=== PATIENT | female | born 1955 | race Caucasian/White ===

== ENCOUNTER → 2018-10-10 | Outpatient (CLI) | payer OTHER, BC ==
[~2018-10-10] VITALS: Ht 157.5 cm; Wt 77.1 kg
[~2018-10-10] MED LIST: AIRBORNE TABLE1 EACH PO; ALENDRONATE SOD70 MG PO; ASPIR 8181 MG PO; CBD OIL PO; CENTRUM SILVER1 EAC4 PO; CLARITIN10 M2 PO; DHEA50 MG PO; GLUCOPHAGE XR500 MG PO; INDAPAMIDE2.5 MG PO; MUCINEX600 MG PO; OCUVITE TABLET1 EAC1 PO; PRAVACHOL40 MG PO; VERAPAMIL HCL120 MG PO; VITAMIN B COMP1 EACH PO; VITAMIN D-32000 UNIT PO; ZOLOFT50 MG PO
--- NOTE | 2018-10-11 08:14 | P ---
[facility] [place] [address] PROCEDURE REPORT Name: KETTY YAÑEZ Room #: REG [facility].#: [id number] Admission: 10/10/18 ������������������ Attend Phys: Darrin Ford MD Discharge: ������������������ Date of : 51 Report #: [id number] THIS REPORT FOR: //name// CC: Darrin Higuera MD TYPE OF REPORT: Outpatient colonoscopy report. BRIEF HISTORY: The patient is a 63-year-old woman for average risk screening colonoscopy. PREOPERATIVE DIAGNOSIS: Average risk screening colonoscopy. POSTOPERATIVE DIAGNOSES: Normal average risk screening colonoscopy. MEDICATIONS: Deep sedation with propofol per Anesthesia. SPECIMEN: None. ESTIMATED BLOOD LOSS: None. PROCEDURE: Colonoscopy to cecum and terminal ileum. FINDINGS: Prior to propofol sedation, procedure of colonoscopy discussed with the patient as well as potential risks and its complications. She indicates she understands and desires to proceed. DESCRIPTION OF PROCEDURE: With the patient in left lateral decubitus position, digital examination was completed, which revealed no abnormalities. Subsequently, the Olympus video colonoscope was introduced in the rectum and advanced under direct vision to the cecum. It was done with minimal difficulty. The cecum was identified by the ileocecal valve and the appendiceal orifice. I was able to visualize the distal segment of the terminal ileum, which was inspected and noted to be unremarkable. At that point, the scope was slowly withdrawn and careful circumferential views obtained. Upon slow withdrawal of the scope, the prep was excellent. The mucosa was within normal limits, normal vascular pattern, normal light reflex. As we withdrew the scope, no neoplastic inflammatory changes were seen. She had normal colonic mucosa throughout. No polyps were seen. It is noted that her sigmoid colon was a little tortuous and angulated. The arredondo feel relatively rigid, but I do not see evidence of diverticular disease. The scope was withdrawn from the rectum and we made several attempts to retroflex without success. Scope was withdrawn. The patient tolerated the procedure well. A repeat digital exam was done since we could not retroflexed and no lesions were felt at the level of the anal verge. CONDITION OF THE PATIENT UPON DISCHARGE: Following procedure, the patient was [facility] [address] [place] [address] PROCEDURE REPORT Name: KETTY YAÑEZ Room #: REG [facility]..#: [id number] Admission: 10/10/18 ������������������ Attend Phys: Darrin Ford MD Discharge: ������������������ Date of : 51 Report #: [id number] drowsy, arousable, conversant and will be discharged home when fully ambulatory. INSTRUCTIONS TO THE PATIENT AND FAMILY AT THE TIME OF DISCHARGE: No neoplastic lesions seen today. She is considered average risk. Suggest followup colon exam in 10 years. Last colonoscopy was more than 10 years ago per the patient report. Withdrawal time from the cecum was 10 minutes 50 seconds. ��������������������������������������������� <ELECTRONICALLY SIGNED> ���������������������������������������� By: Darrin Ford MD ��������������������������������������������� 10/11/18 0814 [id number] Darrin Ford MD /elie
== END | disposition home or self-care (01) ==
LOC: GI 09:06
DX: Z12.11 Encounter for screening for malignant neoplasm of colon (principal); K63.89 Other specified diseases of intestine; I10 Essential (primary) hypertension; E11.9 Type 2 diabetes mellitus without complications; J45.909 Unspecified asthma, uncomplicated; H40.9 Unspecified glaucoma; E78.5 Hyperlipidemia, unspecified; F32.9 Major depressive disorder, single episode, unspecified; Z98.890 Other specified postprocedural states; Z85.828 Personal history of other malignant neoplasm of skin; Z79.899 Other long term (current) drug therapy; Z88.2 Allergy status to sulfonamides; Z79.82 Long term (current) use of aspirin
CPT/HCPCS: 62110; 62900